=== PATIENT | male | born 2000 | race Caucasian/White ===

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

== ENCOUNTER 2021-01-18 12:08 | Emergency (ER) | payer BC, SELFPAY ==
[2021-01-18 14:03] VITALS: BP 126/63; PULSE 80; RESP 16; TEMP 37.1; O2SAT 98; BMI 32.8
--- NOTE | 2021-01-18 14:20 | HMH.EDUTC ---
[facility] [place] Disposition Clinical Impression: Encounter for laboratory testing for COVID-19 virus Disposition: Home, Self-Care Condition on Discharge: Good Instructions: DI for COVID-19 (Suspected or Confirmed ), Coronavirus Disease 2019, Preventing the Spread of Coronavirus Discharge Instructions Additional Instructions: *Monitor Temp, Over the counter Motrin or Tylenol as directed/as needed Tylenol every 4 hours and Motrin every 6 hours (as long as your family doctor has told you that you can take it) for fever or pain. and straight to ER if unable to lower temp less than 101.0 after medication given Follow up IMMEDIATELY for new or worsening symptoms or no Noticeable improvement over the next 48-72 hours. 911 for difficulty breathing or swallowing You were tested for today for COVID19 your test result should be back in the next 24-48 hours, you may call to the [facility] to see if your test results are back in the next 48 hours [phone] [facility] hours are 9am-9pm You was given a handout with instructions for Self Quarantine and Self isolation for while you wait on test results and what to do if they are positive If you are positive the Health Dept will be contacting you also Make sure to take your Vitamins Vit. C Vit D and Zinc if you can take them Referrals: Provider,Referral, MD [Primary Care Provider] - Forms: Work/School Release Time of Disposition: 14:22 Medical Decision Making - Ilya Inquiry Pt receiving controlled substance: No Ilya was queried for this patient: No Vital Signs: 01/18/21 14:03 Temperature 98.8 F Temperature Source Oral Pulse Rate [Left] 80 Respiratory Rate 16 Blood Pressure [Right Arm] 126/63 Blood Pressure Mean [Right Arm] 84 02 Sat by Pulse Oximetry 98 Orders (Tests/Meds): ORDERS Category Date Time Status Covid-19 Nasal PCR ([facility]) Routine Lab 01/18/21 13:58 Received [facility] [place] HPI - General Stated complaint: covid exposure/test Time Seen by Provider: 01/18/21 14:20 Mode of Arrival: Ambulatory Source of Information: Patient Limitations: No Limitations Description of Symptoms (Recalled from Triage Doc. by RN): pt was exposed to covid but is asymptomatic. HEENT Symptoms (Recalled from RN notes): No Resp Symptoms (Recalled from RN notes): No Skin Symptoms (Recalled from RN notes): No MS Symptoms (Recalled from RN notes): No Functional Status (Recalled from RN notes): na - History of Present Illness Provider Complaint: Patient states that his girlfriend tested positive for COVID a couple days ago but he is not having any symptoms and needed to get tested for COVID due to exposure - Related Data Previous Rx's Medication Instructions Recorded Azithromycin [Z-Víctor 250mg Tab*] 250 mg PO UD DOSE PK #6 tab 05/15/19 Brompheniramine/Pseudoephed/Dm 5 ml PO Q6HP PRN #240 syrup 05/15/19 [Bromfed Dm Cough Syrup] Ondansetron [Zofran 4mg ODT] 4 mg PO Q8HP PRN #20 tab.rapdis 05/15/19 Oseltamivir Phosphate [Tamiflu 75 mg PO BID #10 cap 05/15/19 75mg Capsule] Allergies Allergy/AdvReac Type Severity Reaction Status Date / Time nickel [NICKEL] Allergy Unknown Unverified 05/14/17 15:13 - Worker's Comp Is this a Worker's Comp case?: No [facility] History - Hepatitis A Screen Drug use history?: No High risk sexual behaviors?: No History of sexually transmitted infection?: No Currently employed?: No Childcare worker?: No Do you have indoor plumbing?: Yes Do you have electricity?: Yes Attestation statement:: This patient has been screened for Hepatitis A risk factors. I have reviewed the patient's past medical history: Yes Medical History: Denies:: Cancer, Diabetes Mellitus Type 1, Diabetes Mellitus Type 2, MRSA Amputation: No Fractures: No - 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 Smoking Status: Current every day smoker Tobacco Type: smokeless tobacco # Packs/Day (cigarettes): 1 Alcohol Intake: never Occupational Status: employed ROS Obtained: Yes All systems reviewed & no additional com
[2021-01-18 14:27] VITALS: BP 126/63; PULSE 80; RESP 16; TEMP 37.1
--- NOTE | 2021-01-19 12:54 | PC.NURSE ---
pt notified of positive covid test results
== END 2021-01-18 14:44 | disposition home or self-care (01) ==
PROVIDERS: Emergency Provider Nurse Practitioner
DX: U07.1 COVID-19 (principal); F17.290 Nicotine dependence, other tobacco product, uncomplicated
CPT/HCPCS: 99202; G0463; U0003

== ENCOUNTER 2021-03-30 09:36 | Emergency (ER) | payer BC, SELFPAY ==
[2021-03-30 09:38] VITALS: BP 158/85; PULSE 101; RESP 18; TEMP 36.8; O2SAT 99; BMI 32.8
[2021-03-30 09:50] VITALS: BMI 32.8
--- NOTE | 2021-03-30 09:52 | CT_ITS ---
PROCEDURE: CT ABDOMEN PELVIS W CON CLINICAL INDICATION: RUQ PAIN COMPARISON: No exams were available for comparison TECHNIQUE: IV Contrast: 75ML Isovue 370 Oral Contrast None Axial images obtained with sagittal and coronal reformats. All CT scans at the facility use one or more dose reduction, viz: automated exposure control, ma/kV adjustment per patient size (including targeted exams where dose is matched to indication, i.e. head), or iterative reconstruction technique. FINDINGS: LOWER THORAX: Calcified granuloma right middle lobe. 4 mm noncalcified nodule right lower lobe posteriorly. 4 mm fissural nodule inferiorly on the left. 5 x 2 mm nodular opacity left lower lobe anteriorly. ABDOMEN & PELVIS: The liver, spleen, adrenal glands, and pancreas have an unremarkable appearance. No renal or ureteral calculi. No hydronephrosis. No radiopaque gallstones. No evidence of appendicitis. No intestinal obstruction or free air. No pelvic mass or abnormal fluid collection. There are few small mesenteric lymph nodes which are nonspecific. No acute bony findings. There is a tiny umbilical hernia containing fat Mild thoracolumbar scoliosis convex right IMPRESSION: No acute findings Dictated by: Parviz Durant MD 03/30/2021 11:11 Parviz Durant MD in [place] 03/30/2021 11:11
[2021-03-30 10:10] LABS: Basophils # 0.1 K/mm3 (0-0.2); Basophils % 0.7 % (0.1-2.0); Eosinophils # 0.3 K/mm3 (0.0-0.4); Eosinophils % 4.4 % (0.1-12.0); Hematocrit 47.4 % (42.0-52.0); Hemoglobin 15.7 g/dL (14.1-18.0); Lymphocytes # 2.1 K/mm3 (0.7-4.5); Lymphocytes % 32.6 % (10-50); Mean Corpuscular HGB Conc 33.1 g/dL (31.8-35.4); Mean Corpuscular Hemoglobin 30.9 pg (27.0-31.2); Mean Corpuscular Volume 93.2 fl (80-94); Mean Platelet Volume 8.1 fl (7.4-10.4); Microscopic, Urine URINE MICROSCOPIC (MICROSCOPIC); Monocytes # 0.3 K/mm3 (0.1-1.0); Monocytes % 5.3 % (1.7-9.3); Neutrophils # 3.7 K/mm3 (1.8-7.8); Platelet Count 260 K/mm3 (142-424); Red Blood Count 5.08 M/mm3 (4.60-6.20); Red Cell Distribution Width 12.7 % (11.5-17.5); White Blood Count 6.5 K/mm3 (4.8-10.8)
[2021-03-30 10:14] LABS: Appearance,Urine CLEAR (Clear); Bilirubin,Urine Negative (Negative); Blood, Urine Negative (Negative); Color,Urine YELLOW (Yellow); Glucose,Urine (UA) Negative (Negative); Ketones,Urine Negative (Negative); Leukocyte Esterase,Urine Negative (Negative); Nitrate,Urine Negative (Negative); PH,Urine 6.5 (5.0-8.5); Protein,Urine Negative (Negative); Urobilinogen,Urine 0.2 EU/dl (0.2)
--- NOTE | 2021-03-30 10:21 | HMH.EDABDPAI ---
ED Disposition Clinical Impression: Constipation Qualifiers: Constipation type: slow transit constipation Qualified Code(s): K59.01 - Slow transit constipation Disposition: Home, Self-Care Condition on Discharge: Good Instructions: DI for Acute Abdominal Pain Prescriptions: Docusate Sodium [Docusate Sod Liquid 100mg/10mL udc] 10 ml PO DAILY #100 ml Transmission Status: Received by [facility][id number] Referrals: Provider,Referral, [Primary Care Provider] - Forms: Work/School Release - Critical Care Critical Care Time: No Attestation: On 03/30/21, the high probability of a clinically significant, sudden or life threatening deterioration of the following system(s) required my full and direct attention, intervention and personal management. The time I documented below is in addition to time spent performing reported procedures but includes the following listed in this critical care notation. Medical Decision Making - Medical Records Medical records reviewed: Yes: I reviewed the patient's medical records. - Ilya Inquiry Pt receiving controlled substance: No Vital Signs: 03/30/21 09:38 03/30/21 10:30 03/30/21 11:00 Temperature 98.2 F Temperature Source Oral Pulse Rate 90 91 H Pulse Rate [Left Radial] 101 H Respiratory Rate 18 20 20 Blood Pressure 127/72 138/79 Blood Pressure [Right Arm] 158/85 H Blood Pressure Mean 90 91 Blood Pressure Mean [Right Arm] 109 Blood Pressure Source [Right Arm] Automatic Cuff Blood Pressure Position [Right Arm] Sitting 02 Sat by Pulse Oximetry 99 99 99 Oxygen Delivery Method Room Air 03/30/21 11:31 03/30/21 13:25 Temperature 98.4 F Temperature Source Oral Pulse Rate 82 72 Pulse Rate [Left Radial] Respiratory Rate 18 20 Blood Pressure 132/59 L 116/50 L Blood Pressure [Right Arm] Blood Pressure Mean 83 Blood Pressure Mean [Right Arm] Blood Pressure Source [Right Arm] Blood Pressure Position [Right Arm] 02 Sat by Pulse Oximetry 98 Oxygen Delivery Method - Lab Data Lab Results 03/30/21 10:00: Urine Color Yellow, Urine Appearance Clear, Urine pH 6.5, Ur Specific [place] 1.020, Urine Protein Negative, Urine Glucose (UA) Negative, Urine Ketones Negative, Urine Blood Negative, Urine Nitrate Negative, Urine Bilirubin Negative, Urine Urobilinogen 0.2, Ur Leukocyte Esterase Negative, Urine RBC None, Urine WBC Occasional, Ur Squamous Epith Cells Occasional, Urine Bacteria None 03/30/21 10:00: WBC 6.5, RBC 5.08, Hgb 15.7, Hct 47.4, MCV 93.2, MCH 30.9, MCHC 33.1, RDW 12.7, Plt Count 260, MPV 8.1, Neut % (Auto) 57.0, Lymph % (Auto) 32.6, [place] % (Auto) 5.3, Eos % (Auto) 4.4, Baso % (Auto) 0.7, Neut # (Auto) 3.7, Lymph # (Auto) 2.1, [place] # (Auto) 0.3, Eos # (Auto) 0.3, Baso # (Auto) 0.1 03/30/21 10:00: Sodium 141, Potassium 4.3, Chloride 100, Carbon Dioxide 32 H, Anion Gap 13.3, BUN 9, Creatinine 0.80, Estimated Creat Clear 197, Estimated GFR 122, Est GFR ( Amer) 148, Glucose 97, Calcium 10.1, Total Bilirubin 0.8, AST 29, ALT 27, Alkaline Phosphatase 75, Total Protein 8.1, Albumin 4.9, Globulin 3.2, Albumin/Globulin Ratio 1.5, Amylase 81, Lipase 67 Result diagrams: 03/30/21 10:00 03/30/21 10:00 Orders (Tests/Meds): ED MEDICATIONS Discontinued Medications Generic Name Dose Route Start Last Admin Trade Name Freq PRN Reason Stop Dose Admin Iopamidol 75 ml 03/30/21 11:14 03/30/21 11:15 Iopamidol-370 (76%);100ml Bottle IV 03/30/21 11:15 75 ml ONCE ONE Administration Sodium Chloride 10 ml 03/30/21 11:14 03/30/21 11:15 Sodium Chloride 0.9% 10ml Syr (Rad Only) IV 03/30/21 11:15 10 ml ONCE ONE Administration Medical Decision Narrative: Patient is a 21-year-old male presented to emergency department chief complaint of right upper quadrant squeezing pain, diarrhea. Differential diagnosis in this patient partial bowel obstruction, cholelithiasis, appendicitis, enteritis among others. Given this plan
[2021-03-30 10:26] LABS: Alanine Aminotransferase 27 U/L (12-78); Albumin Level 4.9 g/dl (3.5-5.0); Albumin/Globulin Ratio 1.5 (1.1-1.8); Alkaline Phosphatase 75 U/L (38-126); Amylase 81 U/L (30-110); Anion Gap 13.3 mEq/L (5-15); Aspartate Amino Transferase 29 U/L (17-59); Bilirubin,Total 0.8 mg/dl (0.2-1.3); Blood Urea Nitrogen 9 mg/dl (9-20); Calcium 10.1 mg/dl (8.4-10.2); Carbon Dioxide 32 mmol/L (22.0-30.0); Chloride 100 mmol/L (98-107); Creatinine Clearance Estimated 197 mL/min (50-200); Estimated Glomerular Filt Rate 122 ml/min (>60); GFR (African American) 148 ML/MIN (>60); Globulin 3.2 g/dL (1.3-3.2); Glucose 97 mg/dl (74-100); Lipase 67 U/L (23-300); Potassium 4.3 mmoL/L (3.5-5.1); Sodium 141 mmol/L (136-145); Squamous Epithelial Cell,Urine Occasional #/hpf (0-5); Total Protein,Serum 8.1 g/dl (6.3-8.2); WBC,Urine Occasional #/hpf (0-3)
[2021-03-30 10:30] VITALS: BP 127/72; PULSE 90; RESP 20; O2SAT 99
[2021-03-30 11:00] VITALS: BP 138/79; PULSE 91; RESP 20; O2SAT 99
[2021-03-30 11:31] VITALS: BP 132/59; PULSE 82; RESP 18; O2SAT 98
[2021-03-30 13:25] VITALS: BP 116/50; PULSE 72; RESP 20; TEMP 36.9; O2SAT 99
== END 2021-03-30 13:25 | disposition home or self-care (01) ==
PROVIDERS: Emergency Provider Emergency Medicine
DX: K59.01 Slow transit constipation (principal); F17.210 Nicotine dependence, cigarettes, uncomplicated
CPT/HCPCS: 74177; 80053; 81001; 82150; 83690; 85025; 99283; Q9967

== ENCOUNTER 2021-12-28 10:01 | Emergency (ER) | payer BC, SELFPAY ==
[2021-12-28 10:21] VITALS: BP 166/76; PULSE 107; RESP 16; TEMP 36.9; O2SAT 99; BMI 32.8
[2021-12-28 10:24] LABS: Apearance,Urine Clear (Clear); Color,Urine Dark Yellow (Yellow); Glucose,Urine (UA) Negative (Negative); Protein,Urine 2+ (Negative); Specific Gravity, Urine >= 1.030 (1.005-1.030)
[2021-12-28 10:25] LABS: Bilirubin,Urine 1+ (Negative); Blood, Urine Trace (Negative); Ketones,Urine Negative (Negative); UTC Leukocyte Esterase,Urine Negative (Negative); UTC Nitrate,Urine Negative (Negative); Urobilinogen,Urine 0.2 EU/dl (0.2)
--- NOTE | 2021-12-28 10:39 | HMH.EDUTC ---
[facility] [place] Disposition Clinical Impression: Strep throat Disposition: Home, Self-Care Condition on Discharge: Good Instructions: Strep Throat, DI for Strep Throat Additional Instructions: Drink plenty of fluids. Take tylenol or ibuprofen for pain or fever. Take the medications as directed. Follow up with your regular doctor. GO TO THE ER FOR ANY WORSENING SYMPTOMS Throw your tooth brush away and get a new one. Prescriptions: Brompheniramine/Pseudoephed/Dm [Bromfed Dm Cough Syrup] 5 ml PO Q6HP PRN #240 ml PRN Reason: Cough Transmission Status: Received by [id number] Amoxicillin/Potassium Clav [Amox-Clav 875-125 mg Tablet] 1 tab PO BID #20 tab Transmission Status: Received by [id number] methylPREDNISolone [Medrol] 4 mg PO DIRECTED 6 Days #21 packet Transmission Status: Received by [id number] Referrals: Viraj Marino MD [Primary Care Provider] - Forms: Work/School Release Time of Disposition: 10:58 Medical Decision Making - Medical Records Medical records reviewed: No: I reviewed the patient's medical records. - Ilya Inquiry Pt receiving controlled substance: No Vital Signs: 12/28/21 10:21 12/28/21 11:00 Temperature 98.5 F 98.5 F Temperature Source Oral Pulse Rate 107 H Pulse Rate [Left] 107 H Respiratory Rate 16 16 Blood Pressure 166/76 H Blood Pressure [Right Arm] 166/76 H Blood Pressure Mean [Right Arm] 106 02 Sat by Pulse Oximetry 99 - Lab Data Lab Results 12/28/21 10:20: Urine Color Dark yellow, Urine Appearance Clear, Urine pH 6.0, Ur Specific [place] >= 1.030, Urine Protein 2+, Urine Glucose (UA) Negative, Urine Ketones Negative, Urine Blood Trace, Urine Nitrate Negative, Urine Bilirubin 1+ A, Urine Urobilinogen 0.2, Ur Leukocyte Esterase Negative 12/28/21 10:44: Strep Scn [facility] Positive A Orders (Tests/Meds): ORDERS Category Date Time Status Urine Culture Stat Micro 12/28/21 10:16 Received [facility] [place] HPI - General Stated complaint: fever, back pain Time Seen by Provider: 12/28/21 10:39 Mode of Arrival: Ambulatory Source of Information: Patient Limitations: No Limitations Description of Symptoms (Recalled from Triage Doc. by RN): patient comes in for fever off and on for past 3 days. patient also complains of back and shoulder pain. patient took an at home test yesterday and it was negative. HEENT Symptoms (Recalled from RN notes): No Resp Symptoms (Recalled from RN notes): No Skin Symptoms (Recalled from RN notes): No MS Symptoms (Recalled from RN notes): Yes Functional Status (Recalled from RN notes): n/a - History of Present Illness Provider Complaint: He states that for the past 2 days he has had scratchy sore throat, body aches, chills, low grade fever and he has felt bad. - Related Data Previous Rx's Medication Instructions Recorded Azithromycin [Z-Víctor 250mg Tab*] 250 mg PO UD DOSE PK #6 tab 05/15/19 Brompheniramine/Pseudoephed/Dm 5 ml PO Q6HP PRN #240 syrup 05/15/19 [Bromfed Dm Cough Syrup] Ondansetron [Zofran 4mg ODT] 4 mg PO Q8HP PRN #20 tab.rapdis 05/15/19 Oseltamivir Phosphate [Tamiflu 75 mg PO BID #10 cap 05/15/19 75mg Capsule] Docusate Sodium [Docusate Sod 10 ml PO DAILY #100 ml 03/30/21 Liquid 100mg/10mL udc] Amoxicillin/Potassium Clav 1 tab PO BID #20 tab 12/28/21 [Amox-Clav 875-125 mg Tablet] Brompheniramine/Pseudoephed/Dm 5 ml PO Q6HP PRN #240 ml 12/28/21 [Bromfed Dm Cough Syrup] methylPREDNISolone [Medrol] 4 mg PO DIRECTED 6 Days #21 12/28/21 packet Allergies Allergy/AdvReac Type Severity Reaction Status Date / Time nickel [NICKEL] Allergy Unknown Verified 12/28/21 10:23 - Worker's Comp Is this a Worker's Comp case?: No [facility] History - Hepatitis A Screen Attestation statement:: This patient has been screened for Hepatitis A risk factors. I have reviewed the patient's past medical history: Yes Medical History: Denies:: Cancer, Diabe
[2021-12-28 10:57] LABS: UTC Strep Screen (Rapid) Positive (Negative)
[2021-12-28 11:00] VITALS: BP 166/76; PULSE 107; RESP 16; TEMP 36.9
== END 2021-12-28 11:04 | disposition home or self-care (01) ==
PROVIDERS: Emergency Provider Nurse Practitioner Family; PCP Internal Medicine
DX: J02.0 Streptococcal pharyngitis (principal); B95.0 Streptococcus, group A, as the cause of diseases classified elsewhere; M54.9 Dorsalgia, unspecified; R20.2 Paresthesia of skin; M25.519 Pain in unspecified shoulder; F17.290 Nicotine dependence, other tobacco product, uncomplicated
CPT/HCPCS: 81003; 87086; 87880; 99213; G0463

== ENCOUNTER 2022-01-07 17:58 | Emergency (ER) | payer BC, SELFPAY ==
[2022-01-07 18:09] VITALS: BP 122/54; PULSE 84; RESP 16; TEMP 36.8; O2SAT 99; BMI 30.1
--- NOTE | 2022-01-07 18:18 | HMH.EDUTC ---
[facility] [place] Disposition Clinical Impression: Otitis media Qualifiers: Otitis media type: unspecified Laterality: left Qualified Code(s): H66.92 - Otitis media, unspecified, left ear Otitis externa Qualifiers: Otitis externa type: unspecified type Chronicity: unspecified Laterality: left Qualified Code(s): H60.92 - Unspecified otitis externa, left ear Disposition: Home, Self-Care Condition on Discharge: Good Instructions: Ear Infections (Alternative Therapy), Otitis Externa, Middle Ear Infection, DI for Otitis Externa Prescriptions: Ofloxacin [Floxin 0.3% OTIC Solution 5mL] 10 drp OT BID 10 Days #10 ml Transmission Status: Pending to [facility] Cefdinir [Omnicef 300mg Capsule] 300 mg PO BID #20 cap Transmission Status: Pending to [id number] Referrals: Viraj Marino MD [Primary Care Provider] - As needed Time of Disposition: 18:30 Medical Decision Making - Ilya Inquiry Pt receiving controlled substance: No Ilya was queried for this patient: No Vital Signs: 01/07/22 18:09 Temperature 98.2 F Temperature Source Oral Pulse Rate [Left] 84 Respiratory Rate 16 Blood Pressure [Right Arm] 122/54 L Blood Pressure Mean [Right Arm] 76 02 Sat by Pulse Oximetry 99 Medical Decision Narrative: Patient states that he was seen and treated over a week ago for strep throat but he quit taking the medication and hasnt taken it in close to a week [facility] [place] HPI - General Stated complaint: ears and Jaw pain Time Seen by Provider: 01/07/22 18:19 Mode of Arrival: Ambulatory Source of Information: Patient Limitations: No Limitations Description of Symptoms (Recalled from Triage Doc. by RN): patient comes in left ear pressure. symptoms have been ongoing for 2 days. HEENT Symptoms (Recalled from RN notes): Yes Resp Symptoms (Recalled from RN notes): No Skin Symptoms (Recalled from RN notes): No MS Symptoms (Recalled from RN notes): No Functional Status (Recalled from RN notes): n/a - History of Present Illness Provider Complaint: Patient states that he has been having pain and pressure in his left ear for several days and having pain States that today his pain was worse so he came in to get it checked out and felt likt it was moving to the outside of his ear - Related Data Previous Rx's Medication Instructions Recorded Cefdinir [Omnicef 300mg Capsule] 300 mg PO BID #20 cap 01/07/22 Ofloxacin [Floxin 0.3% OTIC 10 drp OT BID 10 Days #10 ml 01/07/22 Solution 5mL] Allergies Allergy/AdvReac Type Severity Reaction Status Date / Time nickel [NICKEL] Allergy Unknown Verified 01/07/22 18:18 - Worker's Comp Is this a Worker's Comp case?: No [facility] History - Hepatitis A Screen Attestation statement:: This patient has been screened for Hepatitis A risk factors. I have reviewed the patient's past medical history: Yes Medical History: Denies:: Cancer, Diabetes Mellitus Type 1, Diabetes Mellitus Type 2, MRSA Amputation: No Fractures: No - 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 Smoking Status: Current every day smoker Tobacco Type: smokeless tobacco # Packs/Day (cigarettes): 1 Alcohol Intake: never Occupational Status: employed ROS Obtained: Yes All systems reviewed & no additional complaints, Yes Systems reviewed as appropriate & no additional complaints - Constitutional Constitutional: Reports system reviewed and no additional complaints, except as docu - ENT Ears, Nose, Mouth, and Throat: Reports system reviewed and no additional complaints, except as docu, Reports otalgia - Cardiovascular Cardiovascular: Reports system reviewed and no additional complaints, except as docu Physical Exam - General General appearance: alert, in no apparent distress - Expanded ENT Exam External ear exam: Present: pain with movement, external tenderness TM/Canal exam: Left TM: erythema, loss of landmarks - Respiratory Respiratory exam: Present: normal lung sounds bilaterally. Absent: respiratory distress - Cardi
[2022-01-07 18:39] VITALS: BP 122/54; PULSE 84; RESP 16; TEMP 36.8
== END 2022-01-07 18:39 | disposition home or self-care (01) ==
PROVIDERS: Emergency Provider Nurse Practitioner; PCP Internal Medicine
DX: H66.92 Otitis media, unspecified, left ear (principal)
CPT/HCPCS: 99212; G0463

== ENCOUNTER 2022-05-06 11:50 | Emergency (ER) | payer BC, SELFPAY ==
[2022-05-06 12:35] VITALS: BP 124/69; PULSE 84; RESP 21; TEMP 36.6; O2SAT 98
[2022-05-06 13:10] VITALS: BP 124/69; PULSE 84; RESP 21; TEMP 36.6; O2SAT 98; BMI 30.7
[2022-05-06 13:19] LABS: Bordetella Pertussis Not Detected (NotDetected); Chlamydophila Pneumoniae, PCR Not Detected (NotDetected); Coronavirus 19, PCR Not Detected (NotDetected); Coronavirus 229E Not Detected (NotDetected); Coronavirus NL63 Not Detected (NotDetected); Coronavirus OC43 Not Detected (NotDetected); Coronovirus HKU1,PCR Not Detected (NotDetected); Human Metapneumovirus Not Detected (NotDetected); Influenza A, PCR Not Detected (NotDetected); Influenza AH1, 2009 Not Detected (NotDetected); Influenza AH1, PCR Not Detected (NotDetected); Influenza AH3,PCR Not Detected (NotDetected); Influenza B, PCR Not Detected (NotDetected); Mycoplasma Pneumoniae, PCR Not Detected (NotDetected); Parainfluenza 1, PCR Not Detected (NotDetected); Parainfluenza 2, PCR Not Detected (NotDetected); Parainfluenza 3, PCR Not Detected (NotDetected); Respiratory Syncytial Virus Not Detected (NotDetected); Rhinovirus/Enterovirus Not Detected (NotDetected)
--- NOTE | 2022-05-06 13:25 | EXP.UTC ---
Discharge Plan Disposition Patient Disposition: Home, Self-Care Condition: Good Prescriptions Prescriptions: New azithromycin [azithromycin] 250 mg tablet 250 mg PO DIRECTED Qty: 6 0RF Rx Instructions: Take two (2) tablets on day #1, then one (1) tablet day #2 thru #5 fluticasone propionate [fluticasone propionate] 50 mcg/actuation spray,suspension 1 spray intranasal DAILY Qty: 9.9 0RF Rx Instructions: 1 spray each nostril daily No Action ofloxacin 5 ML drops 10 drp OT BID 10 Days Qty: 10 0RF cefdinir 300 MG capsule 300 mg PO BID Qty: 20 0RF Referrals Follow up/Referrals: Provider,Referral, MD [Primary Care Provider] - See instructions Clinical Impressions Clinical Impression: Acute maxillary sinusitis Instructions Patient Instructions: DI for Sinusitis Discharge ED Provider: Evelyn ([facility])[place] [place] HPI General Stated complaint: Congestion, cough Mode of Arrival: Ambulatory Source of Information: Patient Limitations: No Limitations Time Seen by Provider: 05/06/22 13:25 Description of Symptoms (Recalled from Triage Doc. by RN): PATIENT C/O COUGH, RUNNY NOSE AND HEADACHE X 1 WEEK HEENT Symptoms (Recalled from RN notes): Yes Resp Symptoms (Recalled from RN notes): Yes Skin Symptoms (Recalled from RN notes): No MS Symptoms (Recalled from RN notes): No Functional Status (Recalled from RN notes): WNL History of Present Illness Provider Complaint: 22 yr old male presents for cough,fever, sinus pressure,sinus pain,and lazcano, Related Data Previous Rx's Medication Instructions Recorded cefdinir 300 mg capsule 300 mg PO BID #20 caps 01/07/22 ofloxacin 0.3 % ear drops 10 drp otic (ear) BID 10 days #10 01/07/22 mL azithromycin 250 mg tablet 250 mg PO DIRECTED #6 tabs 05/06/22 fluticasone propionate 50 1 spray intranasal DAILY #9.9 mL 05/06/22 mcg/actuation nasal spray,suspension Allergies Allergy/AdvReac Type Severity Reaction Status Date / Time nickel [NICKEL] Allergy Unknown Verified 01/07/22 18:18 Worker's Comp Is this a Worker's Comp case?: No [facility] Disclaimer: The information contained in this section may have been updated after the patient was seen, as this information can be updated by other users. 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 current occupational exposures/hazards: No caffeine: Yes ROS Obtained: Yes All systems reviewed & no additional complaints except as documented Constitutional Constitutional: Reports system reviewed and no additional complaints, except as documented, Reports as per HPI and Reports fever(s) Eyes Eyes: Reports system reviewed and no additional complaints, except as documented ENT Ears, Nose, Mouth, and Throat: Reports system reviewed and no additional complaints, except as documented, Reports as per HPI, Reports nasal congestion, Reports nasal discharge, Reports sinus pain, Reports sinus pressure and Reports sore throat Cardiovascular Cardiovascular: Reports system reviewed and no additional complaints, except as documented Respiratory Respiratory: Reports system reviewed and no additional complaints, except as documented Gastrointestinal Gastrointestingal: Reports system reviewed and no additional complaints, except as documented Genitourinary Male Genitourinary: Reports system reviewed and no additional complaints, except as documented Musculoskeletal Musculoskeletal: Reports system reviewed and no additional complaints, except as documented Integumentary/Breasts Skin/Breast: Reports system reviewed and no additional complaints, except as documented Neurologic Neurologic: Reports system reviewed and no additional complaints, except as
[2022-05-06 15:44] LABS: Adenovirus,PCR Detected (NotDetected); Parainfluenza 4, PCR Detected (NotDetected)
== END 2022-05-06 13:38 | disposition home or self-care (01) ==
PROVIDERS: Emergency Provider Nurse Practitioner Family
DX: J10.1 Influenza due to other identified influenza virus with other respiratory manifestations (principal); B97.0 Adenovirus as the cause of diseases classified elsewhere; J01.00 Acute maxillary sinusitis, unspecified; R50.9 Fever, unspecified; F17.210 Nicotine dependence, cigarettes, uncomplicated; Z79.51 Long term (current) use of inhaled steroids; Z91.048 Other nonmedicinal substance allergy status
CPT/HCPCS: 87581; 87632; 87798; 99213; C9803; G0463; U0003; U0005

== ENCOUNTER 2023-05-13 08:32 | Emergency (ER) | payer BC, SELFPAY ==
[2023-05-13 08:40] VITALS: BP 148/84; PULSE 112; RESP 18; TEMP 37.7; O2SAT 96; BMI 33.4
[2023-05-13 08:59] LABS: UTC Strep Screen (Rapid) Negative (Negative)
[2023-05-13 09:00] LABS: UTC Influenza A Antigen Positive (Negative); UTC Influenza B Antigen Negative (Negative)
--- NOTE | 2023-05-13 09:03 | EXP.UTC ---
Discharge Plan Disposition Patient Disposition: Home, Self-Care Condition: Good Referrals Follow up/Referrals: Provider,Referral, MD [Primary Care Provider] - See instructions Activity Restrictions/Add. Instructions Additional Instructions/Restrictions: Discussed Tamiflu and you decided you did not want to take it there is some over the counter Oscillococcinum Lots of rest Increase Fluids water, Gatorade, powerade, pedialyte,if /toddler/child Alternate Tylenol and / or ibuprofen as discussed for fever, aches, chills Follow up IMMEDIATELY with your family doctor for new or worsening Symptoms OR no noticeable improvement over the next 48-72 hours, 911 for difficulty or breathing You or your child area contagious until no fever, aches, chills for 24 hours with medication for symptoms Help Prevent the spread of influenza: ?Wash your hands often. Use soap and water. Wash your hands after you use the bathroom, change a child's diapers, or sneeze. Wash your hands before you prepare or eat food. Use gel hand cleanser that has 60% alcohol, when soap and water are not available. Do not touch your eyes, nose, or mouth unless you have washed your hands first. Cover your mouth when you sneeze or cough. Cough into a tissue or the bend of your arm. If you use a tissue, throw it away immediately and wash your hands. Clean shared items with a germ-killing bladder cleaner. Clean table surfaces, doorknobs, and light switches. Do not share towels, silverware, and dishes with people who are sick. Wash bed sheets, towels, silverware, and dishes with soap and water. Wear a mask over your mouth and nose if you are sick. The face mask may help protect others from becoming infected with the flu. Wear the mask when in common areas of your home or if you seek care with a healthcare provider. Stay away from others if you are sick. Stay at home until 24 hours after your fever and symptoms are gone. Clinical Impressions Clinical Impression: Influenza A Stand Alone Forms Stand Alone Forms: Work/School Release Instructions Patient Instructions: DI for Influenza -- Adult, Influenza Discharge ED Provider: Jazmyn Zapien [facility] [place] HPI General Stated complaint: sinus pressure, body aches, cough, runny nose Mode of Arrival: Ambulatory Source of Information: Patient Limitations: No Limitations Time Seen by Provider: 05/13/23 09:04 Description of Symptoms (Recalled from Triage Doc. by RN): coughing, sore throat, body aches, and runny nose. 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
[2023-05-13 09:25] VITALS: BP 148/84; PULSE 112; RESP 18; TEMP 37.7; O2SAT 96
== END 2023-05-13 09:25 | disposition home or self-care (01) ==
PROVIDERS: Emergency Provider Nurse Practitioner
DX: J10.1 Influenza due to other identified influenza virus with other respiratory manifestations (principal); R51.9 Headache, unspecified; R50.9 Fever, unspecified; R05.9 Cough, unspecified; R09.81 Nasal congestion; R07.0 Pain in throat; M79.18 Myalgia, other site; F17.290 Nicotine dependence, other tobacco product, uncomplicated
CPT/HCPCS: 87804; 87880; 99212; 99214; G0463

== ENCOUNTER 2024-10-18 18:59 | Emergency (ER) | payer BC, SELFPAY ==
[2024-10-18 19:06] VITALS: BP 146/91; PULSE 89; RESP 18; TEMP 36.7; O2SAT 100; BMI 31.9
--- NOTE | 2024-10-18 19:11 | PC.NURSE ---
Pt offered ice pack, patient declines
--- NOTE | 2024-10-18 19:12 | XR_ITS ---
PROCEDURE INFORMATION: Exam: XR Right Forearm Exam date and time: 10/18/2024 7:29 PM Age: 24 years old Clinical indication: Injury or trauma; Other: Right hand injury TECHNIQUE: Imaging protocol: Radiologic exam of the right forearm. Views: 2 views. COMPARISON: CR XR HAND RT MIN 3V 10/18/2024 7:26 PM FINDINGS: Bones/joints: Osseous alignment is normal. No acute fracture. No significant arthritic change. Soft tissues: Normal. IMPRESSION: Negative right forearm
--- NOTE | 2024-10-18 19:12 | XR_ITS ---
PROCEDURE INFORMATION: Exam: XR Right Hand Exam date and time: 10/18/2024 7:26 PM Age: 24 years old Clinical indication: Injury or trauma; Other: Right hand injury TECHNIQUE: Imaging protocol: Radiologic exam of the right hand. Views: 3 or more views. COMPARISON: No relevant prior studies available. FINDINGS: Bones/joints: Osseous alignment is normal. No acute fracture. No significant arthritic change. Soft tissues: Normal. IMPRESSION: Negative right hand
--- NOTE | 2024-10-18 19:16 | HMH.EDGENADL ---
Discharge Plan Disposition Patient Disposition: Home, Self-Care Condition: Good Referrals Follow up/Referrals: Viraj Marino MD [Primary Care Provider] - See instructions Activity Restrictions/Add. Instructions Additional Instructions/Restrictions: Recommend rest ice compression elevation along with Tylenol alternating with Motrin for the pain and swelling. If you have persistent new or worsening signs or symptoms follow-up with your PCP return to the ER as needed. Clinical Impressions Clinical Impression: Hematoma of right hand Stand Alone Forms Stand Alone Forms: Work/School Release Print Language Print Language: [place] Discharge ED Provider: Adam Anderson General Adult HPI <NADIYA Gifford - Last Filed: 10/18/24 20:47> General Chief complaint: Extremity Injury, Upper Stated complaint: Fall yesterday 10/17 off wagon R hand Pain Time Seen by Provider: 10/18/24 20:00 Mode of Arrival: Ambulatory Source of Information: Patient Description of Symptoms (Recalled from ER Triage Doc. by RN): Pt presents for evaluation of right hand injury, pt states he fell off a wagon. right noted to be swollen. Pt has strong pulse and brisk cap refill History of Present Illness HPI narrative: Patient presents for evaluation of right hand injury. Patient was working on a varinodeot wagon and fell off the wagon but was able to catch himself with his hands. However his right hand suffered an injury and patient is not sure how. He has had increasing pain and swelling today but denies loss of motor or sensory or any other injury. He hurts primarily in the area of the base of the fifth metacarpal Related Data Allergies Allergy/AdvReac Type Severity Reaction Status Date / Time nickel (NICKEL) Allergy Unknown Verified 05/13/23 08:54 [facility] <NADIYA Gifford - Last Filed: 10/18/24 20:47> [facility] Disclaimer: The information contained in this section may have been updated after the patient was seen, as this information can be updated by other users. 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 current occupational exposures/hazards: No caffeine: Yes Have you lived/traveled outside [place] in past 30 days?: No Contact w/someone who lives/traveled outside US past 30 days?: No Exposure to someone with infectious disease in past 14 days?: No Do you have a fever (greater than 100.4 F or 38 C)?: No Have you tested positive for COVID-19?: No Exposed to someone with COVID-19 in past 14 days?: No Do you have a sore throat?: No Do you have a cough?: No Do you have any weakness?: No Do you have any diarrhea?: No Are you experiencing any unusual bleeding?: No Do you have any muscle aches/pain?: No Do you have any abdominal pain?: No Are you experiencing loss of taste or smell?: No Other Medical History Have you received the Flu Vaccine for this season: No Have you received the Pneumonia Vaccine: No <NADIYA Gifford - Last Filed: 10/18/24 20:47> ROS Obtained: Yes Systems reviewed as appropriate & no additional complaints except as documented Physical Exam <NADIYA Gifford - Last Filed: 10/18/24 20:47> General General appearance: alert Respiratory Respiratory exam: Present normal lung sounds bilaterally Cardiovascular Cardiovascular exam: Present regular rate Neurological Exam Neurological exam: Present alert and oriented X3 Medical Decision Making <NADIYA Gifford - Last Filed: 10/18/24 20:47> Medical Records Screening: Per USPSTF and CDC recommendations, given the prevalence of disease in our region, it is our hospital?s policy to screen for HIV and viral Hepatitis for all patients aged 18 and over and those with ongoing risk factors. Ilya Inquiry Pt receiving controlled substance: No Vital Signs: 10/18/24 19:06 10/18/24 20:52 Temperature 98.1 F 98.2 F Temperature Source Oral Pulse Rate 88 Pulse Rate [Right] 89 Respiratory Rate 18 18 Blood Pressure 136/87 Blood Pressure [Right Arm] 146/91 H Blood Pressure Mean [Right Arm] 109 Blood Pressure Source [Right Arm] Automatic Cuff Blood Pressure Position [Right Arm] Sitting 02 Sat by Pulse Oximetry 100 Oxygen Delivery Method Room Air Orders (Tests/Meds): ED MEDICATIONS Discontinued Medications Generic Name Dose Route Start Last Admin Trade Name Freq PRN Reason Stop Dose Admin Acetaminophen 1,000 mg 10/18/24 20:32 10/18/24 20:37 Acetaminophen 500mg Tab PO 10/18/24 20:33 1,000 mg ONCE ONE Administration Ibuprofen 800 mg 10/18/24 20:32 10/18/24 20:37 Ibuprofen 400 Mg Tablet PO 10/18/24 20:33 800 mg ONCE ONE Administration ORDERS Category Date Time Status Forearm XR right 2 views [XR forearm RT 2V] Stat Exams 10/18/24 19:12 Completed XR hand RT min 3V Stat Exams 10/18/24 19:12 Completed Medical Decision Narrative: In summary patient is a 24-year-old male who presents to the emergency department for evaluation of right hand injury. Patient is hemodynamically stable upon arrival, afebrile. Sickle exam is remarkable for swelling and ecchymosis over the dorsum of the right hand over the fifth metacarpal. It is very tender to palpation at the base however no palpable bony deformity noted. He is neurovascular intact distally with full range of motion. He has normal rotational alignment with no deviation.. Differential diagnosis includes fracture versus contusion. Initial workup will be conducted with plain film x-rays.. Initial interventions include Tylenol and ibuprofen. Initial workup reviewed by me and my informal trepidation of his pain from x-ray shows no acute fracture prior to radiology read. Please final read for formal interpretation. Upon repeat evaluation patient reported moderate improvement after Tylenol and ibuprofen. Given this patient is appropriate for discharge with instructions for RICE continue taking Tylenol alternating with Motrin for pain and swelling and close follow-up PCP if he has persistent new or worsening signs or symptoms. <Adam Anderson MD - Last Filed: 10/18/24 23:32> Vital Signs: 10/18/24 19:06 10/18/24 20:52 Temperature 98.1 F 98.2 F Temperature Source Oral Pulse Rate 88 Pulse Rate [Right] 89 Respiratory Rate 18 18 Blood Pressure 136/87 Blood Pressure [Right Arm] 146/91 H Blood Pressure Mean [Right Arm] 109 Blood Pressure Source [Right Arm] Automatic Cuff Blood Pressure Position [Right Arm] Sitting 02 Sat by Pulse Oximetry 100 Oxygen Delivery Method Room Air Orders (Tests/Meds): ED MEDICATIONS Discontinued Medications Generic Name Dose Route Start Last Admin Trade Name Freq PRN Reason Stop Dose Admin Acetaminophen 1,000 mg 10/18/24 20:32 10/18/24 20:37 Acetaminophen 500mg Tab PO 10/18/24 20:33 1,000 mg ONCE ONE Administration Ibuprofen 800 mg 10/18/24 20:32 10/18/24 20:37 Ibuprofen 400 Mg Tablet PO 10/18/24 20:33 800 mg ONCE ONE Administration ORDERS Category Date Time Status Forearm XR right 2 views [XR forearm RT 2V] Stat Exams 10/18/24 19:12 Completed XR hand RT min 3V Stat Exams 10/18/24 19:12 Completed Medical Decision Narrative: In summary patient is a 24-year-old male who presents to the emergency department for evaluation of right hand injury. Patient is hemodynamically stable upon arrival, afebrile. Sickle exam is remarkable for swelling and ecchymosis over the dorsum of the right hand over the fifth metacarpal. It is very tender to palpation at the base however no palpable bony deformity noted. He is neurovascular intact distally with full range of motion. He has normal rotational alignment with no deviation.. Differential diagnosis includes fracture versus contusion. Initial workup will be conducted with plain film x-rays.. Initial interventions include Tylenol and ibuprofen. Initial workup reviewed by me and my informal trepidation of his pain from x-ray shows no acute fracture prior to radiology read. Please final read for formal interpretation. Upon repeat evaluation patient reported moderate improvement after Tylenol and ibuprofen. Given this patient is appropriate for discharge with instructions for RICE continue taking Tylenol alternating with Motrin for pain and swelling and close follow-up PCP if he has persistent new or worsening signs or symptoms. I was consulted by the MALIKA, and we discussed the complexity of the problems being addressed.I approved the treatment and management plan for this patient?s care in the Emergency Department, thus performing a substantive portion of the medical decision making.Signed, Adam Anderson MD MBA Critical Care <NADIYA Gifford - Last Filed: 10/18/24 20:47> Critical Care Time Critical Care Time: No
[2024-10-18] MEDS: ACETAMINOPHEN 500MG TAB 1000 MG PO (20:37)
[2024-10-18] MEDS: IBUPROFEN 400 MG TABLET 800 MG PO (20:37)
[2024-10-18 20:52] VITALS: BP 136/87; PULSE 88; RESP 18; TEMP 36.8; O2SAT 98
== END 2024-10-18 20:58 | disposition home or self-care (01) ==
PROVIDERS: Emergency Provider Emergency Medicine; PCP Internal Medicine
DX: S60.221A Contusion of right hand, initial encounter (principal); M79.641 Pain in right hand; V00.181A Fall from other rolling-type pedestrian conveyance, initial encounter
CPT/HCPCS: 73090; 73130; 99283

== ENCOUNTER 2025-04-30 15:58 | Outpatient (CLI) | payer BC, SELFPAY ==
--- NOTE | 2025-04-30 16:00 | US_ITS ---
PROCEDURE INFORMATION: Exam: US Scrotum Exam date and time: 04/30/2025 4:04 PM Age: 25 years old Clinical indication: Scrotum pain TECHNIQUE: Imaging protocol: Real-time ultrasound of the scrotum and contents with color Doppler and image documentation. COMPARISON: CT ABDOMEN PELVIS W CON 03/30/2021 10:47 AM FINDINGS: Right testicle: Right testis measures 4.0 x 2.8 x 3.4 cm (21 mL)The echotexture is homogeneous without focal lesions. Normal color Doppler evaluation. There is adequate arterial inflow and venous outflow. Left testicle: Left testis measures 4.2 x 2.3 x 3.2 cm (17 mL)The echotexture is homogeneous without focal lesions. Normal color Doppler evaluation. There is adequate arterial inflow and venous outflow. Epididymides: There is a 0.6 cm left epididymal head cyst. Scrotum/soft tissues: Normal. No hydroceles. Vasculature: Prominent bilateral pampiniform vein IMPRESSION: Prominent bilateral pampiniform veins can be seen in the context of varicocele.
== END 2025-04-30 23:59 | disposition home or self-care (01) ==
LOC: RAD 15:58
PROVIDERS: PCP Internal Medicine; Visit Provider Internal Medicine
DX: N50.3 Cyst of epididymis (principal); I87.8 Other specified disorders of veins
CPT/HCPCS: 76870